=== PATIENT | female | born 1985 | race African-American/Black ===

== ENCOUNTER 2018-04-19 15:18 | Emergency (ER) | payer BC, OTHER ==
[~2018-04-19] VITALS: Ht 154.9 cm; Wt 53.5 kg
[~2018-04-19 15:18] MED LIST: AMITIZA8 MCG PO; AMITRIPTYLINE H25 M2 PO; CARISOPRODOL 3350 MG PO; CEFPODOXIME PR200 M1 PO; CIPRO500 MG PO; CIPROFLOXACIN500 M1 PO; CIPROFLOXACIN500 M3; DULCOLAX5 MG PO; HYDROCODONE-AP1 EAC6; IMITREX 50 MG T50 MG; LEVAQUIN 500 M500 M2 PO; LEVOTHYROXINE0.05 MG PO; LINZESS145 MCG PO; LINZESS290 MCG PO; LIZNESS; MEDROLDOSEPACK PO; MEGESTROL ACETA20 MG PO; MIRALAX255 GM PO; MODAFINIL100 MG PO; NECON1 EAC4 PO; NORCO 5-325 TA1 EACH PO; NUVIGIL150 MG PO; PERCOCET 10-321 EACH; PERCOCET 5-3251 EACH PO; PERCOCET PO; PHENERGAN 25 MG25 M1 PO; PYRIDIUM200 MG PO; ZOFRAN ODT4 MG DISSOLVE
[2018-04-19] MEDS ORDERED: AUGMENTIN 500-1 EACH PO (15:25)
[2018-04-19 15:32] LABS: URINE BILIRUBIN NEGATIVE (Negative); URINE BLOOD NEGATIVE (Negative); URINE CLARITY CLEAR; URINE COLOR YELLOW; URINE GLUCOSE-RANDOM* NEGATIVE (Negative); URINE KETONES NEGATIVE (Negative); URINE LEUKOCYTES-REFLEX NEGATIVE (Negative); URINE NITRITE-REFLEX NEGATIVE (Negative); URINE PROTEIN (DIPSTICK) NEGATIVE (Negative); URINE SPECIFIC GRAVITY 1.025 (1.005-1.035); URINE UROBILINOGEN 0.2 E.U./dl (0.2-1.0)
[2018-04-19 16:02] LABS: ABSOLUTE NEUTROPHILS 2.5 thou/uL (1.4-8.2); BASOPHILS 0.7 % (0.0-2.0); EOSINOPHILS 1.6 % (0.0-3.0); HEMOGLOBIN 13.6 gm/dL (12.0-15.0); LYMPHOCYTES 24.4 % (24.0-44.0); MCH 30.4 pg (26.0-34.0); MCHC 33.9 g/dL (28.0-37.0); MCV 89.7 fL (80.0-100.0); MONOCYTES 11.2 % (1.0-8.0); PLATELET COUNT 186 thou/uL (150-400); POLYS 62.1 % (36.0-66.0); RBC 4.46 mil/uL (4.20-5.00); RDW 13.6 % (10.5-14.5); WBC 4.1 thou/uL (4.0-11.0)
[2018-04-19 16:10] LABS: POTASSIUM 4.3 mmol/L (3.5-5.1)
[2018-04-19 16:16] LABS: ALBUMIN 3.7 g/dL (3.4-5.0); TOTAL BILIRUBIN 0.2 mg/dL (<0.1-1.0); TOTAL PROTEIN 7.7 g/dL (6.4-8.2)
[2018-04-19] MEDS ORDERED: SCOPOLAMINE1 EACH TRANSDERM (16:18)
[2018-04-19] MEDS ORDERED: ANTIVERT25 MG PO (16:19)
[2018-04-19 17:29] VITALS: BP 92/57
[2018-04-19] MEDS ORDERED: GOLYTELY4000 M1 PO (17:29)
[2018-04-19] MEDS ORDERED: MIRALAX17 GM PO (17:29)
[2018-04-19] MEDS ORDERED: FLEET ENEMA133 ML RECTAL (17:29)
[2018-04-19] MEDS ORDERED: CLEOCIN HCL150 MG PO (17:33)
[2018-04-19] MEDS ORDERED: TORADOL 10 MG T10 MG PO (17:33)
[2018-04-20 17:12] LABS: NEISSERIA GONORRHEA-PCR Negative (Negative)
== END 2018-04-19 17:37 | disposition home or self-care (01) ==
LOC: ER 15:18
PROVIDERS: Physician Assistant
DX: K59.00 Constipation, unspecified (principal); J02.9 Acute pharyngitis, unspecified; G43.909 Migraine, unspecified, not intractable, without status migrainosus; Z90.710 Acquired absence of both cervix and uterus; Z90.5 Acquired absence of kidney; Z88.8 Allergy status to other drugs, medicaments and biological substances; Z88.1 Allergy status to other antibiotic agents; Z91.040 Latex allergy status; Z88.5 Allergy status to narcotic agent; Z88.2 Allergy status to sulfonamides; Z88.0 Allergy status to penicillin

== ENCOUNTER 2018-10-29 13:13 | Emergency (ER) | payer BC, OTHER ==
[~2018-10-29] VITALS: Ht 154.9 cm; Wt 49.9 kg
[~2018-10-29 13:13] MED LIST changes: +ANTIVERT25 MG PO; +AUGMENTIN 500-1 EACH PO; +CLEOCIN HCL150 MG PO; +FLEET ENEMA133 ML RECTAL; +GOLYTELY4000 M1 PO; +MIRALAX17 GM PO; +SCOPOLAMINE1 EACH TRANSDERM; +TORADOL 10 MG T10 MG PO
[2018-10-29] MEDS ORDERED: BUTALB-APAP-CA1 EACH PO (13:45)
[2018-10-29] MEDS ORDERED: MACROBID 100 M100 M2 PO (13:48)
[2018-10-29 13:59] VITALS: BP 113/72
== END 2018-10-29 14:00 | disposition home or self-care (01) ==
LOC: ER 13:13
DX: S09.8XXA Other specified injuries of head, initial encounter (principal); G43.909 Migraine, unspecified, not intractable, without status migrainosus; Z90.710 Acquired absence of both cervix and uterus; Z88.0 Allergy status to penicillin; Z88.2 Allergy status to sulfonamides; Z88.1 Allergy status to other antibiotic agents; Z88.5 Allergy status to narcotic agent; Z91.040 Latex allergy status; W00.0XXA Fall on same level due to ice and snow, initial encounter; Y93.89 Activity, other specified; Y92.89 Other specified places as the place of occurrence of the external cause; Y99.8 Other external cause status

== ENCOUNTER 2018-11-12 10:29 | Emergency (ER) | payer BC, OTHER ==
[~2018-11-12] VITALS: Ht 154.9 cm; Wt 51.3 kg
[~2018-11-12 10:29] MED LIST changes: +BUTALB-APAP-CA1 EACH PO; +MACROBID 100 M100 M2 PO
[2018-11-12] MEDS ORDERED: NAPROSYN500 MG PO (11:23)
[2018-11-12] MEDS ORDERED: TESSALON PERLE100 MG PO (11:23)
[2018-11-12 11:38] VITALS: BP 108/78
== END 2018-11-12 11:39 | disposition home or self-care (01) ==
LOC: ER 10:29
DX: J06.9 Acute upper respiratory infection, unspecified (principal); R07.89 Other chest pain; H92.02 Otalgia, left ear; G43.909 Migraine, unspecified, not intractable, without status migrainosus; Z90.710 Acquired absence of both cervix and uterus; Z90.5 Acquired absence of kidney; Z88.2 Allergy status to sulfonamides; Z88.0 Allergy status to penicillin; Z88.5 Allergy status to narcotic agent; Z88.1 Allergy status to other antibiotic agents; Z88.8 Allergy status to other drugs, medicaments and biological substances

== ENCOUNTER 2019-02-06 18:34 | Emergency (ER) | payer BC, OTHER ==
[~2019-02-06] VITALS: Ht 154.9 cm; Wt 52.2 kg
[~2019-02-06 18:34] MED LIST changes: +NAPROSYN500 MG PO; +TESSALON PERLE100 MG PO
[2019-02-06 19:01] LABS: URINE BILIRUBIN NEGATIVE (Negative); URINE BLOOD NEGATIVE (Negative); URINE CLARITY CLEAR; URINE COLOR YELLOW; URINE GLUCOSE-RANDOM* NEGATIVE (Negative); URINE KETONES NEGATIVE (Negative); URINE LEUKOCYTES-REFLEX NEGATIVE (Negative); URINE NITRITE-REFLEX NEGATIVE (Negative); URINE PROTEIN (DIPSTICK) NEGATIVE (Negative); URINE UROBILINOGEN 0.2 E.U./dl (0.2-1.0)
[2019-02-06 20:03] LABS: HEMATOCRIT 38.1 % (37.0-47.0); HEMOGLOBIN 12.7 gm/dL (12.0-15.0); MCH 30.3 pg (26.0-34.0); MCHC 33.4 g/dL (28.0-37.0); MCV 90.8 fL (80.0-100.0); PLATELET COUNT 201 thou/uL (150-400); RDW 13.2 % (10.5-14.5); WBC 3.6 thou/uL (4.0-11.0)
[2019-02-06 20:14] LABS: CALCIUM 9.3 mg/dL (8.5-10.1); POTASSIUM 3.9 mmol/L (3.5-5.1)
[2019-02-06] MEDS ORDERED: ULTRAM 50MG TAB50 MG PO (21:22)
[2019-02-06] MEDS ORDERED: NAPROSYN500 MG PO (21:22)
[2019-02-06] MEDS ORDERED: PHENAZOPYRIDIN200 M2 PO (21:23)
[2019-02-06 21:35] LABS: ANISOCYTOSIS 1+
[2019-02-06 21:51] VITALS: BP 116/77
== END 2019-02-06 21:52 | disposition home or self-care (01) ==
LOC: ER 18:34
PROVIDERS: Physician Assistant
DX: R10.84 Generalized abdominal pain (principal); R30.0 Dysuria; G43.909 Migraine, unspecified, not intractable, without status migrainosus; Z90.710 Acquired absence of both cervix and uterus; Z88.0 Allergy status to penicillin; Z88.1 Allergy status to other antibiotic agents; Z88.2 Allergy status to sulfonamides; Z88.5 Allergy status to narcotic agent; Z88.8 Allergy status to other drugs, medicaments and biological substances; Z91.040 Latex allergy status

== ENCOUNTER 2019-06-18 06:22 | Emergency (ER) | payer BC, OTHER ==
[~2019-06-18] VITALS: Ht 157.5 cm; Wt 59.0 kg
[~2019-06-18 06:22] MED LIST changes: +PHENAZOPYRIDIN200 M2 PO; +ULTRAM 50MG TAB50 MG PO
[2019-06-18] MEDS ORDERED: MIRALAX17 GM PO (06:30)
[2019-06-18] MEDS ORDERED: BISACODYL10 MG RECTAL (06:30)
[2019-06-18] MEDS ORDERED: ENEMA BOTTLE1 EACH RECTAL (06:31)
[2019-06-18] MEDS ORDERED: LINZESS72 MCG PO (06:32)
[2019-06-18] MEDS ORDERED: NF (06:38)
[2019-06-18 06:49] LABS: URINE BILIRUBIN NEGATIVE (Negative); URINE BLOOD NEGATIVE (Negative); URINE CLARITY CLEAR; URINE COLOR YELLOW; URINE GLUCOSE-RANDOM* NEGATIVE (Negative); URINE KETONES NEGATIVE (Negative); URINE PROTEIN (DIPSTICK) NEGATIVE (Negative); URINE SPECIFIC GRAVITY 1.015 (1.005-1.035); URINE UROBILINOGEN 0.2 E.U./dl (0.2-1.0)
[2019-06-18 06:51] LABS: URINE LEUKOCYTES-REFLEX 2+ (Negative); URINE NITRITE-REFLEX POSITIVE (Negative)
[2019-06-18 06:53] LABS: ABSOLUTE NEUTROPHILS 0.9 thou/uL (1.4-8.2); EOSINOPHILS 2.5 % (0.0-3.0); HEMATOCRIT 42.5 % (37.0-47.0); HEMOGLOBIN 14.2 gm/dL (12.0-15.0); LYMPHOCYTES 58.5 % (24.0-44.0); MCH 30.4 pg (26.0-34.0); MCHC 33.4 g/dL (28.0-37.0); MCV 91.1 fL (80.0-100.0); MONOCYTES 8.8 % (1.0-8.0); PLATELET COUNT 228 thou/uL (150-400); POLYS 29.2 % (36.0-66.0); RBC 4.67 mil/uL (4.20-5.00); RDW 12.9 % (10.5-14.5); WBC 3.2 thou/uL (4.0-11.0)
[2019-06-18 06:59] LABS: CASTS None Seen /LPF (None Seen); CRYSTALS None Seen /LPF (None Seen); SQUAMOUS 0-3 Few /LPF (0-3)
[2019-06-18 07:02] LABS: BACTERIA-REFLEX 1-9 Few /HPF (None Seen); URINE RBC None Seen /HPF (0-2)
[2019-06-18 07:03] LABS: YEAST-REFLEX Present (None Seen)
[2019-06-18 07:10] LABS: CALCIUM 9.5 mg/dL (8.5-10.1); CREATININE 0.9 mg/dL (0.6-1.0); POTASSIUM 4.6 mmol/L (3.5-5.1)
[2019-06-18 07:16] LABS: TOTAL BILIRUBIN 0.3 mg/dL (<0.1-1.0); TOTAL PROTEIN 8.2 g/dL (6.4-8.2)
[2019-06-18 09:40] VITALS: BP 117/81
[2019-06-18] MEDS ORDERED: KEFLEX500 M1 PO (10:30)
[2019-06-18] MEDS ORDERED: SENOKOT-S1 TA2 PO (11:01)
[2019-06-18] MEDS ORDERED: CONSTULOSE10 GM/15 M PO (11:01)
== END 2019-06-18 11:27 | disposition home or self-care (01) ==
LOC: ER 06:22
PROVIDERS: Emergency Medicine
DX: N39.0 Urinary tract infection, site not specified (principal); K59.00 Constipation, unspecified; G47.419 Narcolepsy without cataplexy; G43.909 Migraine, unspecified, not intractable, without status migrainosus; Z90.710 Acquired absence of both cervix and uterus; Z90.5 Acquired absence of kidney; Z88.8 Allergy status to other drugs, medicaments and biological substances; Z88.1 Allergy status to other antibiotic agents; Z88.5 Allergy status to narcotic agent; Z88.6 Allergy status to analgesic agent; Z88.2 Allergy status to sulfonamides; Z91.040 Latex allergy status

== ENCOUNTER 2019-09-19 19:14 | Emergency (ER) | payer BC, OTHER ==
[~2019-09-19] VITALS: Ht 154.9 cm; Wt 52.2 kg
[~2019-09-19 19:14] MED LIST changes: +BISACODYL10 MG RECTAL; +CONSTULOSE10 GM/15 M PO; +ENEMA BOTTLE1 EACH RECTAL; +KEFLEX500 M1 PO; +LINZESS72 MCG PO; +NF; +SENOKOT-S1 TA2 PO
[2019-09-19] MEDS ORDERED: DOXYCYCLINE 10100 M2 PO (19:19)
[2019-09-19] MEDS ORDERED: TAMSULOSIN HCL0.4 MG PO (19:19)
[2019-09-19] MEDS ORDERED: VALACYCLOVIR1000 MG PO (19:20)
[2019-09-19 20:07] LABS: ABSOLUTE NEUTROPHILS 1.1 thou/uL (1.4-8.2); BASOPHILS 0.8 % (0.0-2.0); EOSINOPHILS 1.8 % (0.0-3.0); HEMATOCRIT 41.9 % (37.0-47.0); HEMOGLOBIN 13.8 gm/dL (12.0-15.0); LYMPHOCYTES 59.5 % (24.0-44.0); MCV 90.9 fL (80.0-100.0); MONOCYTES 8.6 % (1.0-8.0); PLATELET COUNT 234 thou/uL (150-400); POLYS 29.3 % (36.0-66.0); RBC 4.61 mil/uL (4.20-5.00); RDW 13.4 % (10.5-14.5); WBC 3.6 thou/uL (4.0-11.0)
[2019-09-19 20:15] LABS: ANION GAP 7 mmol/L (7-16); BUN 20 mg/dL (7-18); CALCIUM 9.5 mg/dL (8.5-10.1); CHLORIDE 103 mmol/L (98-107); CO2 28 mmol/L (21-32); GLUCOSE 87 mg/dL (74-106); SODIUM 138 mmol/L (136-145)
[2019-09-19 20:20] LABS: ALBUMIN 3.8 g/dL (3.4-5.0); SGOT 25 U/L (15-37); SGPT 44 U/L (30-65); TOTAL BILIRUBIN 0.3 mg/dL (<0.1-1.0); TOTAL PROTEIN 7.8 g/dL (6.4-8.2); TROPONIN-I <0.06 ng/mL (<0.06)
[2019-09-19] MEDS ORDERED: ULTRAM 50MG TAB50 MG PO (21:53)
[2019-09-19] MEDS ORDERED: VENTOLIN HFA 1818 GM INH (21:53)
[2019-09-19 22:00] LABS: URINE BILIRUBIN NEGATIVE (Negative); URINE BLOOD NEGATIVE (Negative); URINE CLARITY SL CLOUDY; URINE COLOR YELLOW; URINE GLUCOSE-RANDOM* NEGATIVE (Negative); URINE KETONES NEGATIVE (Negative); URINE LEUKOCYTES-REFLEX NEGATIVE (Negative); URINE PROTEIN (DIPSTICK) NEGATIVE (Negative); URINE SPECIFIC GRAVITY 1.025 (1.005-1.035); URINE UROBILINOGEN 0.2 E.U./dl (0.2-1.0)
[2019-09-19 22:01] LABS: URINE NITRITE-REFLEX POSITIVE (Negative)
[2019-09-19 22:16] LABS: BACTERIA-REFLEX >30 Many /HPF (None Seen); CASTS None Seen /LPF (None Seen); CRYSTALS None Seen /LPF (None Seen); MUCUS 0-3 Light strn/LPF (None Seen); SQUAMOUS 4-10 Moderate /LPF (0-3); URINE RBC 0-2 Rare /HPF (0-2); URINE WBC-REFLEX 6-15 Few /HPF (0-5)
[2019-09-19] MEDS ORDERED: CEFUROXIME250 MG PO (22:22)
[2019-09-19 22:40] VITALS: BP 101/58
--- NOTE | 2019-09-20 08:40 | EKG ---
[place] [address] [facility] [email or web address] [address] ELECTROCARDIOGRAM REPORT Name: WILEYJEREMIAH P Room #: [facility]#: [id number] Admission: 09/19/19 Attend Phys: Discharge: 09/19/19 Date of : 83 Report #: [id number] THIS REPORT FOR: //name// 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
== END 2019-09-19 22:40 | disposition home or self-care (01) ==
LOC: ER 19:14
PROVIDERS: Emergency Medicine Emergency Medical Services
DX: R07.89 Other chest pain (principal); J40 Bronchitis, not specified as acute or chronic; N39.0 Urinary tract infection, site not specified; G43.909 Migraine, unspecified, not intractable, without status migrainosus; Z88.2 Allergy status to sulfonamides; Z88.1 Allergy status to other antibiotic agents; Z91.040 Latex allergy status; Z79.899 Other long term (current) drug therapy; Z88.5 Allergy status to narcotic agent; Z90.710 Acquired absence of both cervix and uterus

== ENCOUNTER 2019-11-30 03:19 | Emergency (ER) | payer BC, OTHER ==
[~2019-11-30] VITALS: Ht 154.9 cm; Wt 52.2 kg
[~2019-11-30 03:19] MED LIST changes: +CEFUROXIME250 MG PO; +DOXYCYCLINE 10100 M2 PO; +TAMSULOSIN HCL0.4 MG PO; +VALACYCLOVIR1000 MG PO; +VENTOLIN HFA 1818 GM INH
[2019-11-30 03:50] LABS: URINE BILIRUBIN NEGATIVE (Negative); URINE BLOOD NEGATIVE (Negative); URINE CLARITY CLEAR; URINE COLOR YELLOW; URINE GLUCOSE-RANDOM* NEGATIVE (Negative); URINE KETONES NEGATIVE (Negative); URINE LEUKOCYTES-REFLEX NEGATIVE (Negative); URINE PROTEIN (DIPSTICK) NEGATIVE (Negative); URINE UROBILINOGEN 0.2 E.U./dl (0.2-1.0)
[2019-11-30 04:03] LABS: URINE NITRITE-REFLEX POSITIVE (Negative)
[2019-11-30 04:06] LABS: BACTERIA-REFLEX >30 Many /HPF (None Seen); CASTS None Seen /LPF (None Seen); MUCUS 0-3 Light strn/LPF (None Seen); SQUAMOUS 4-10 Moderate /LPF (0-3); URINE RBC 0-2 Rare /HPF (0-2); URINE WBC-REFLEX 6-15 Few /HPF (0-5)
[2019-11-30 04:07] LABS: CRYSTALS None Seen /LPF (None Seen)
[2019-11-30 04:50] LABS: ABSOLUTE NEUTROPHILS 1.1 thou/uL (1.4-8.2); BASOPHILS 0.9 % (0.0-2.0); EOSINOPHILS 2.1 % (0.0-3.0); HEMOGLOBIN 12.9 gm/dL (12.0-15.0); LYMPHOCYTES 52.8 % (24.0-44.0); MCH 29.8 pg (26.0-34.0); MCHC 32.2 g/dL (28.0-37.0); MCV 92.7 fL (80.0-100.0); MONOCYTES 9.8 % (1.0-8.0); PLATELET COUNT 216 thou/uL (150-400); POLYS 34.4 % (36.0-66.0); RBC 4.31 mil/uL (4.20-5.00); RDW 13.9 % (10.5-14.5); WBC 3.2 thou/uL (4.0-11.0)
[2019-11-30 05:00] LABS: CALCIUM 8.9 mg/dL (8.5-10.1); CREATININE 1.2 mg/dL (0.6-1.0); POTASSIUM 3.8 mmol/L (3.5-5.1)
[2019-11-30 05:06] LABS: ALBUMIN 3.9 g/dL (3.4-5.0); TOTAL BILIRUBIN 0.3 mg/dL (<0.1-1.0); TOTAL PROTEIN 7.7 g/dL (6.4-8.2)
[2019-11-30] MEDS ORDERED: LEVAQUIN 750 M750 MG PO (05:22)
[2019-11-30 06:04] VITALS: BP 104/65
== END 2019-11-30 06:13 | disposition home or self-care (01) ==
LOC: ER 03:19
PROVIDERS: Emergency Medicine
DX: N39.0 Urinary tract infection, site not specified (principal); Z88.1 Allergy status to other antibiotic agents; Z91.040 Latex allergy status; Z88.5 Allergy status to narcotic agent; Z88.2 Allergy status to sulfonamides; Z91.018 Allergy to other foods; Z90.710 Acquired absence of both cervix and uterus

== ENCOUNTER 2020-04-01 09:43 | Emergency (ER) | payer BC, OTHER ==
[~2020-04-01] VITALS: Ht 154.9 cm; Wt 52.2 kg
[~2020-04-01 09:43] MED LIST changes: +LEVAQUIN 750 M750 MG PO
[2020-04-01 10:35] LABS: URINE BILIRUBIN NEGATIVE (Negative); URINE BLOOD TRACE (Negative); URINE CLARITY CLEAR; URINE COLOR YELLOW; URINE GLUCOSE-RANDOM* NEGATIVE (Negative); URINE KETONES NEGATIVE (Negative); URINE PROTEIN (DIPSTICK) NEGATIVE (Negative); URINE SPECIFIC GRAVITY 1.025 (1.005-1.035); URINE UROBILINOGEN 0.2 E.U./dl (0.2-1.0)
[2020-04-01 10:36] LABS: URINE LEUKOCYTES-REFLEX 2+ (Negative); URINE NITRITE-REFLEX POSITIVE (Negative)
[2020-04-01 10:54] LABS: HEMOGLOBIN 14.2 gm/dL (12.0-15.0); MCH 30.6 pg (26.0-34.0); MCHC 33.7 g/dL (28.0-37.0); MCV 90.7 fL (80.0-100.0); PLATELET COUNT 217 thou/uL (150-400); RBC 4.64 mil/uL (4.20-5.00); WBC 2.8 thou/uL (4.0-11.0)
[2020-04-01 11:02] LABS: CASTS None Seen /LPF (None Seen); SQUAMOUS 0-3 Few /LPF (0-3)
[2020-04-01 11:03] LABS: BACTERIA-REFLEX 1-9 Few /HPF (None Seen); CRYSTALS None Seen /LPF (None Seen); URINE RBC 0-2 Rare /HPF (0-2); URINE WBC-REFLEX >25 Many /HPF (0-5)
[2020-04-01 11:07] LABS: CALCIUM 9.3 mg/dL (8.5-10.1); POTASSIUM 3.9 mmol/L (3.5-5.1)
[2020-04-01 11:11] LABS: ALBUMIN 3.7 g/dL (3.4-5.0); TOTAL BILIRUBIN 0.3 mg/dL (0.2-1.0); TOTAL PROTEIN 7.5 g/dL (6.4-8.2)
[2020-04-01] MEDS ORDERED: AUGMENTIN 875-1 EACH PO (12:21)
[2020-04-01] MEDS ORDERED: ULTRAM 50MG TAB50 MG PO (12:21)
[2020-04-01] MEDS ORDERED: ZOFRAN ODT4 MG PO (12:21)
[2020-04-01 12:38] VITALS: BP 108/67
[2020-04-01 13:16] LABS: ABSOLUTE NEUTROPHILS 0.9 thou/uL (1.4-8.2)
[2020-04-01 13:17] LABS: ANISOCYTOSIS 1+
== END 2020-04-01 12:38 | disposition home or self-care (01) ==
LOC: ER 09:43
PROVIDERS: Emergency Medicine
DX: N10 Acute pyelonephritis (principal); G47.419 Narcolepsy without cataplexy; G43.909 Migraine, unspecified, not intractable, without status migrainosus; Z90.710 Acquired absence of both cervix and uterus; Z98.890 Other specified postprocedural states; Z79.899 Other long term (current) drug therapy; Z88.8 Allergy status to other drugs, medicaments and biological substances; Z91.040 Latex allergy status; Z88.5 Allergy status to narcotic agent; Z88.1 Allergy status to other antibiotic agents; Z88.2 Allergy status to sulfonamides

== ENCOUNTER 2020-10-14 02:53 | Emergency (ER) | payer BC, OTHER ==
[~2020-10-14] VITALS: Ht 154.9 cm; Wt 54.4 kg
[~2020-10-14 02:53] MED LIST changes: +AUGMENTIN 875-1 EACH PO; +ZOFRAN ODT4 MG PO
[2020-10-14] MEDS ORDERED: PYRIDIUM200 MG PO (03:00)
[2020-10-14] MEDS ORDERED: AMBIEN CR12.5 MG PO (03:01)
[2020-10-14 04:03] LABS: ABSOLUTE NEUTROPHILS 1.5 thou/uL (1.4-8.2); BASOPHILS 1.1 % (0.0-2.0); EOSINOPHILS 2.5 % (0.0-3.0); HEMATOCRIT 42.5 % (37.0-47.0); HEMOGLOBIN 14.1 gm/dL (12.0-15.0); LYMPHOCYTES 47.2 % (24.0-44.0); MCH 29.7 pg (26.0-34.0); MCHC 33.1 g/dL (28.0-37.0); MCV 89.8 fL (80.0-100.0); MONOCYTES 7.9 % (1.0-8.0); PLATELET COUNT 239 thou/uL (150-400); POLYS 41.3 % (36.0-66.0); RBC 4.74 mil/uL (4.20-5.00); RDW 13.7 % (10.5-14.5); WBC 3.6 thou/uL (4.0-11.0)
[2020-10-14 04:06] LABS: URINE BILIRUBIN NEGATIVE (Negative); URINE BLOOD NEGATIVE (Negative); URINE CLARITY SL CLOUDY; URINE COLOR ORANGE; URINE GLUCOSE-RANDOM* 1+ (Negative); URINE KETONES TRACE (Negative); URINE PROTEIN (DIPSTICK) 1+ (Negative); URINE SPECIFIC GRAVITY 1.015 (1.005-1.035)
[2020-10-14 04:13] LABS: CALCIUM 9.2 mg/dL (8.5-10.1); CREATININE 1.1 mg/dL (0.6-1.0)
[2020-10-14 04:16] LABS: URINE LEUKOCYTES-REFLEX 2+ (Negative); URINE NITRITE-REFLEX POSITIVE (Negative)
[2020-10-14 04:17] LABS: POTASSIUM 4.2 mmol/L (3.5-5.1)
[2020-10-14 04:36] LABS: BACTERIA-REFLEX >30 Many /HPF (None Seen); CASTS None Seen /LPF (None Seen); CRYSTALS None Seen /LPF (None Seen); MUCUS 0-3 Light strn/LPF (None Seen); SQUAMOUS None Seen /LPF (0-3); URINE RBC 0-2 Rare /HPF (0-2)
[2020-10-14] MEDS ORDERED: DOXYCYCLINE 10100 MG PO (05:05)
[2020-10-14] MEDS ORDERED: HYDROCODON-ACE1 EAC7 PO (05:05)
[2020-10-14 06:18] VITALS: BP 103/62
== END 2020-10-14 06:19 | disposition home or self-care (01) ==
LOC: ER 02:53
PROVIDERS: Emergency Medicine
DX: N12 Tubulo-interstitial nephritis, not specified as acute or chronic (principal); G43.909 Migraine, unspecified, not intractable, without status migrainosus; Z90.710 Acquired absence of both cervix and uterus; Z79.899 Other long term (current) drug therapy; Z90.89 Acquired absence of other organs; Z88.2 Allergy status to sulfonamides; Z88.1 Allergy status to other antibiotic agents; Z88.5 Allergy status to narcotic agent; Z88.8 Allergy status to other drugs, medicaments and biological substances; Z91.040 Latex allergy status

== ENCOUNTER 2020-11-14 20:52 | Emergency (ER) | payer BC, OTHER ==
[~2020-11-14] VITALS: Ht 154.9 cm; Wt 54.4 kg
[~2020-11-14 20:52] MED LIST changes: +AMBIEN CR12.5 MG PO; +DOXYCYCLINE 10100 MG PO; +HYDROCODON-ACE1 EAC7 PO
[2020-11-14] MEDS ORDERED: MELOXICAM15 MG PO (21:08)
[2020-11-14] MEDS ORDERED: TIZANIDINE HCL2 M1 PO (21:08)
[2020-11-14] MEDS ORDERED: NEURONTIN100 MG PO (22:52)
[2020-11-15 00:25] VITALS: BP 122/79
== END 2020-11-15 00:33 | disposition home or self-care (01) ==
LOC: ER 20:52
DX: G62.9 Polyneuropathy, unspecified (principal); G43.909 Migraine, unspecified, not intractable, without status migrainosus; Z90.710 Acquired absence of both cervix and uterus; Z79.899 Other long term (current) drug therapy; Z88.1 Allergy status to other antibiotic agents; Z88.5 Allergy status to narcotic agent; Z88.2 Allergy status to sulfonamides; Z91.040 Latex allergy status; Z88.8 Allergy status to other drugs, medicaments and biological substances

== ENCOUNTER 2021-10-07 21:18 | Emergency (ER) | payer OTHER ==
[~2021-10-07] VITALS: Ht 154.9 cm; Wt 54.4 kg
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
[~2021-10-07 21:18] MED LIST changes: +MELOXICAM15 MG PO; +NEURONTIN100 MG PO; +TIZANIDINE HCL2 M1 PO
[2021-10-07 22:36] LABS: ABSOLUTE NEUTROPHILS 2.8 thou/uL (1.4-8.2); BASOPHILS 0.6 % (0.0-2.0); EOSINOPHILS 1.6 % (0.0-3.0); HEMATOCRIT 42.2 % (37.0-47.0); HEMOGLOBIN 13.6 gm/dL (12.0-15.0); LYMPHOCYTES 41.7 % (24.0-44.0); MCH 29.8 pg (26.0-34.0); MCHC 32.2 g/dL (28.0-37.0); MCV 92.7 fL (80.0-100.0); MONOCYTES 10.5 % (1.0-8.0); PLATELET COUNT 263 thou/uL (150-400); POLYS 45.6 % (36.0-66.0); RBC 4.55 mil/uL (4.20-5.00); RDW 13.8 % (10.5-14.5); WBC 6.2 thou/uL (4.0-11.0)
[2021-10-07 22:45] LABS: CALCIUM 9.1 mg/dL (8.5-10.1); CREATININE 1.2 mg/dL (0.6-1.0); POTASSIUM 4.3 mmol/L (3.5-5.1)
[2021-10-07] MEDS ORDERED: HYDROCODON-ACE1 EAC7 PO (22:53)
[2021-10-07] MEDS ORDERED: SUNOSI75 MG PO (22:53)
[2021-10-07] MEDS ORDERED: FLOMAX0.4 MG PO (22:54)
[2021-10-07] MEDS ORDERED: TRAMADOL 50 MG50 MG PO (22:54)
[2021-10-07] MEDS ORDERED: LINZESS72 MCG PO (22:55)
[2021-10-07] MEDS ORDERED: PYRIDIUM200 MG PO (22:55)
[2021-10-07 22:58] LABS: ALBUMIN 3.3 g/dL (3.4-5.0); MAGNESIUM 1.9 mg/dL (1.8-2.4); TOTAL BILIRUBIN 0.2 mg/dL (0.2-1.0); TOTAL PROTEIN 7.3 g/dL (6.4-8.2)
[2021-10-08 02:31] VITALS: BP 108/71
[2021-10-08] MEDS ORDERED: MOBIC15 MG PO (02:31)
--- NOTE | 2021-10-09 07:40 | EKG ---
[address] [place] [address] ELECTROCARDIOGRAM REPORT Name: JEREMIAH LAO Room #: [facility]#: [id number] Admission: 10/07/21 Attend Phys: Discharge: 10/08/21 Date of : [birth year] Report #: [id number] [facility] ED Test Date: 2021-10-07 Test Time: 22:43:11 Pat Name: JEREMIAH LAO Department: Room: Gender: F Rental Representative: anthony : 1985 Requested By: Evon Carvajal Order Number: [id number] MD: Ulises Polo Measurements Intervals [place] Rate: 96 P: 51 HI: 158 QRS: 54 QRSD: 80 T: 25 QT: 333 QTc: 421 Interpretive Statements Sinus rhythm Probable left atrial enlargement Borderline T abnormalities, anterior leads Compared to ECG 09/19/2019 19:23:30 No significant changes Electronically Signed On 10-09-2021 7:40:01 STORE OPERATIONS ASSOCIATE by Ulises Polo [email or web address] <ELECTRONICALLY SIGNED> By: Ulises Polo MD, [facility] 10/09/21 0740 [id number] 42 Ulises Polo MD, FACC /EPI
== END 2021-10-08 02:54 | disposition home or self-care (01) ==
LOC: ER 21:18
PROVIDERS: Emergency Medicine
DX: R07.89 Other chest pain (principal); G43.909 Migraine, unspecified, not intractable, without status migrainosus; Z90.710 Acquired absence of both cervix and uterus; Z98.890 Other specified postprocedural states; Z79.899 Other long term (current) drug therapy; Z91.040 Latex allergy status; Z88.5 Allergy status to narcotic agent; Z88.2 Allergy status to sulfonamides; Z88.6 Allergy status to analgesic agent